=== PATIENT | male | born 1955 | race Caucasian/White ===

== ENCOUNTER → 2019-12-19 | Outpatient (CLI) | payer BC, MEDICARE ==
--- NOTE | 2019-12-20 13:20 | CARD ---
MR#: [id number] Date of Study: 12/19/2019 Ordering Physician: OSMAN WATKINS, Referring Physician: OSMAN WATKINS, Tech: Torri Mao [place] APPROVED REPORT EXAM: Two-dimensional and M-mode echocardiogram with Doppler and color Doppler. Other Information Quality : AverageHR: 86bpm Rhythm : NSRTechnically limited study due to smoking. INDICATION Cardiomyopathy 2D DIMENSIONS RVDd3.0 (2.9-3.5cm)Left Atrium(2D)2.6 (1.6-4.0cm) IVSd0.9 (0.7-1.1cm)Aortic Root(2D)3.5 (2.0-3.7cm) LVDd5.1 (3.9-5.9cm)LVOT Diameter2.4 (1.8-2.4cm) PWd1.1 (0.7-1.1cm)LVDs4.1 (2.5-4.0cm) FS (%) 18.6 %SV47.0 ml LVEF(%)38.2 (>50%) M-Mode DIMENSIONS Left Atrium(MM)2.92 (2.5-4.0cm)Aortic Root3.33 (2.2-3.7cm) Aortic Valve AoV Peak Francis.112.0cm/sAoV VTI22.6cm AO Peak GR.5.0mmHgLVOT Peak Francis.117.5cm/s LVOT VTI 23.94cmAO Mean GR.3mmHg LEVAR (VMAX)4.75xw4UOI (VTI)4.95cm2 Mitral Valve MV E Qlbcatmf00.2cm/sMV DECEL [id number] MV A Qdlbdnof08.2cm/sE/A Ratio0.8 Pulmonary Valve PV Peak Rxmgxlxa488.2cm/sPV Peak Grad.4mmHg LEFT VENTRICLE The left ventricle is normal size. There is mild concentric left ventricular hypertrophy. The systoli c function is moderately impaired. The Ejection Fraction is 35-40%. The distal 1/3 of the LV is sever erin hypokinetic to akinetic. Transmitral Doppler flow pattern is Grade I-abnormal relaxation pattern. 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 RIGHT VENTRICLE The right ventricle is normal size. There is normal right ventricular wall thickness. The right ventr icular systolic function is normal. ATRIA The left atrium size is normal. The right atrium size is normal. The interatrial septum is intact wit h no evidence for an atrial septal defect or patent foramen ovale as noted on 2-D or Doppler imaging. AORTIC VALVE The aortic valve is probably trileaflet. Doppler and Color Flow revealed no significant aortic regurg itation. There is no significant aortic valvular stenosis. MITRAL VALVE The mitral valve is thickened but opens well. There is no evidence of mitral valve prolapse. There is no mitral valve stenosis. Doppler and Color Flow revealed no mitral valve regurgitation noted. TRICUSPID VALVE The tricuspid valve is normal in structure and function. Doppler and Color Flow revealed trace tricus pid regurgitation. There is no tricuspid valve prolapse or vegetation. There is no tricuspid valve st enosis. PULMONIC VALVE The pulmonic valve is not well visualized. GREAT VESSELS The aortic root is normal in size. The ascending aorta is normal in size. The IVC is normal in size a nd collapses >50% with inspiration. PERICARDIAL EFFUSION There is no evidence of significant pericardial effusion. Critical Notification Critical Value: No <Conclusion> The systolic function is moderately impaired. The Ejection Fraction is 35-40%. The distal 1/3 of the LV is severely hypokinetic to akinetic. 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 Technically difficult study Signed by : Loy Aparicio, Electronically Approved : 12/19/2019 09:25:06
== END | disposition home or self-care (01) ==
LOC: ECHO 07:45
PROVIDERS: ATTEND Internal Medicine Cardiovascular Disease
DX: I51.7 Cardiomegaly (principal); I42.9 Cardiomyopathy, unspecified
CPT/HCPCS: 93306

== ENCOUNTER → 2020-11-12 | Outpatient (CLI) | payer MEDICARE, OTHER ==
--- NOTE | 2020-11-13 10:30 | CARD ---
MR#: [id number] Date of Study: 11/12/2020 Ordering Physician: OSMAN KENNEDY, Referring Physician: OSMAN KENNEDY, Tech: Cary Hernandez APPROVED REPORT EXAM: Two-dimensional and M-mode echocardiogram with Doppler and color Doppler. Other Information Quality : AverageHR: 63bpm INDICATION COPD Cardiomyopathy RISK FACTORS Hypertension Hyperlipidemia Diabetes 2D DIMENSIONS Left Atrium(2D)3.7 (1.6-4.0cm)IVSd1.0 (0.7-1.1cm) Aortic Root(2D)3.7 (2.0-3.7cm)LVDd5.1 (3.9-5.9cm) LVOT Diameter2.0 (1.8-2.4cm)PWd1.0 (0.7-1.1cm) LVDs4.1 (2.5-4.0cm)FS (%) 19.9 % SV51.0 ml Aortic Valve AoV Peak Francis.125.6cm/sAoV VTI26.1cm AO Peak GR.6.3mmHgLVOT Peak Francis.118.7cm/s LVOT VTI 26.25cmAO Mean GR.3mmHg LEVAR (VMAX)2.18cd4FSK (VTI)3.19cm2 Mitral Valve MV E Zzychjob35.3cm/sMV DECEL RHOB594im MV A Yscvvfuo52.7cm/sE/A Ratio0.8 Pulmonary Valve PV Peak Offmoaqq820.3cm/sPV Peak Grad.5mmHg Tricuspid Valve TR P. Roiqxqjx620wk/sRAP CVRRCYRI3pdOr TR Peak Gr.83ktZzUATO77yoXp Pulmonary Vein S1 Iedibber67.8cm/sD2 Kqzavdiz97.3cm/s LEFT VENTRICLE The left ventricle is normal size. There is borderline concentric left ventricular hypertrophy. Left ventricular systolic function is mildly impaired. The Ejection Fraction is 40-45%. The very distal se ptal wall through the apex is hypokinetic. Transmitral Doppler flow pattern is Grade I-abnormal relax ation pattern. RIGHT VENTRICLE The right ventricle is normal size. There is normal right ventricular wall thickness. The right ventr icular systolic function is normal. ATRIA The left atrium size is normal. The right atrium size is normal. The interatrial septum is intact wit h no evidence for an atrial septal defect or patent foramen ovale as noted on 2-D or Doppler imaging. AORTIC VALVE The aortic valve is thickened but opens well. Doppler and Color Flow revealed no significant aortic r egurgitation. There is no significant aortic valvular stenosis. Calculated aortic valve area is 3.3 c m2 with maximum pressure gradient of 6 mmHg and mean pressure gradient of 3 mmHg. MITRAL VALVE The mitral valve is normal in structure and function. There is no evidence of mitral valve prolapse. There is no mitral valve stenosis. Doppler and Color Flow revealed no mitral valve regurgitation note d. TRICUSPID VALVE The tricuspid valve is normal in structure and function. Doppler and Color Flow revealed trace tricus pid regurgitation with an estimated PAP of 23 mmHg. There is no tricuspid valve stenosis. PULMONIC VALVE The pulmonic valve is not well visualized. Doppler and Color Flow revealed trace pulmonic valvular re gurgitation. GREAT VESSELS The aortic root is normal in size. The IVC is normal in size and collapses >50% with inspiration. PERICARDIAL EFFUSION There is no evidence of significant pericardial effusion. Critical Notification Critical Value: No <Conclusion> The left ventricle is normal size. Left ventricular systolic function is mildly impaired. The Ejection Fraction is 40-45%. The very distal septal wall through the apex is hypokinetic. There is borderline concentric left ventricular hypertrophy. Doppler and Color Flow revealed no significant aortic regurgitation. There is no significant aortic valvular stenosis. Doppler and Color Flow revealed no mitral valve regurgitation noted. Doppler and Color Flow revealed trace tricuspid regurgitation with an estimated PAP of 23 mmHg. Signed by : Osman Kennedy MD Electronically Approved : 11/13/2020 10:30:46
== END ==
LOC: ECHO 10:01
PROVIDERS: ATTEND Internal Medicine Cardiovascular Disease
DX: I11.9 Hypertensive heart disease without heart failure (principal); I42.9 Cardiomyopathy, unspecified
CPT/HCPCS: 93306

== ENCOUNTER → 2021-05-01 | Outpatient (CLI) | payer MEDICARE, OTHER ==
--- NOTE | 2021-05-01 08:47 | RAD ---
CLINICAL HISTORY: Hypertension, history of smoking for 15 years, screening for abdominal aortic aneur ysm. COMPARISON: None available. TECHNIQUE: The abdominal aorta was examined from the diaphragm to the proximal common iliac arteries. FINDINGS: The proximal abdominal aorta measures 2.2 x 2.2 cm. The mid abdominal aorta measures 1.7 x 2.0 cm. The distal abdominal aorta measures 2.7 x 2.6 cm. PSV: 48/7 cm/s The right common iliac artery measures 1.0 x 1.1 cm. PSV: 125 cm/s The left common iliac artery measures 0.9 x 0.8 cm. PSV: 1 31 cm/s IMPRESSION: Ectatic infrarenal abdominal aorta measures up to 2.7 cm in diameter. Abdominal aortic aneurysm measu ring 2.6-2.9 cm as above. Recommend follow-up ultrasound or CTA in 5 years per ACR and SVS recommenda tions. Electronically signed by: Keven oV MD (05/01/2021 8:45 AM) [facility]
== END ==
LOC: US 07:47
PROVIDERS: ATTEND Internal Medicine Cardiovascular Disease
DX: I71.4 Abdominal aortic aneurysm, without rupture (principal)
CPT/HCPCS: 76770